=== PATIENT | female | born 1965 | race Caucasian/White ===

== ENCOUNTER → 2016-05-08 | Outpatient (CLI) | payer BC, OTHER ==
--- NOTE | 2016-05-08 13:55 | MA ---
Diagnostic Digital Mammogram With iCAD Analysis Clinical Indications: Evaluate palpable area in the upper outer right breast. A maternal aunt was jurgen gnosed with breast cancer in her 60s. Technique: Standard cephalocaudal projections are obtained. Digital breast tomosynthesis was performe d in the MLO projection with reconstruction at 1.0 mm slice thickness and composite MLO views reconst ructed. A skin marker is placed on the palpable region. A true lateral view of the right breast is al so performed. This examination is processed by the iCAD computer aided detection system. Comparison: June 2015, May 2013, May 2012, March 2011, February 2010. Breast density: Type B; Scattered fibroglandular densities. Findings: CAD was reviewed. No masses, suspicious calcifications or secondary signs of malignancy are seen. No discrete mammographic abnormality is seen corresponding to the palpable region. There has b een no significant change in the appearance of either breast. Impression: Palpable area in the right breast requires further evaluation, BI-RADS 0. Recommendation: Targeted right breast ultrasound which will be subsequently performed today. [facility] will send a result letter to the patient.
--- NOTE | 2016-05-08 14:39 | US ---
Right Breast Ultrasound History: Evaluate palpable lump. Technique: Longitudinal and transverse images were obtained utilizing a 15 MHz transducer. Color Dop pler evaluation is employed for assessment of vascularity. Examination is interpreted in conjunction with diagnostic mammography performed earlier today. Findings: Palpable asymmetry in the upper outer right breast is identified on physical examination. S onographic interrogation of the region demonstrates prominent fibroglandular elements. The tissue is somewhat heterogeneous with no discrete cystic or solid mass identified. Impression: Probably benign findings when considering mammographic and sonographic assessment, BI-RAD S 3. Recommendation: Continued clinical follow up with repeat sonographic assessment in six months as long as physical examination is stable. Findings and follow-up recommendations were reviewed with the patient in detail. [facility] will send a result letter to the patient.
== END ==
LOC: FIMAGING 13:13
PROVIDERS: ATTEND Nurse Practitioner Women's Health
DX: N63 Unspecified lump in breast (principal)
CPT/HCPCS: G0204; G0279

== ENCOUNTER → 2016-12-15 | Outpatient (CLI) | payer BC | LOC: FIMAGING 10:30 | PROVIDERS: ATTEND Obstetrics & Gynecology | DX: Z12.31 Encounter for screening mammogram for malignant neoplasm of breast (principal) | CPT/HCPCS: G0202 ==

== ENCOUNTER → 2017-01-20 | Outpatient (CLI) | payer BC | LOC: FIMAGING 09:45 | PROVIDERS: ATTEND Nurse Practitioner Women's Health | DX: R92.8 Other abnormal and inconclusive findings on diagnostic imaging of breast (principal) ==

== ENCOUNTER → 2018-03-24 | Outpatient (CLI) | payer OTHER | LOC: FIMAGING 09:50 | PROVIDERS: ATTEND Obstetrics & Gynecology | DX: Z12.31 Encounter for screening mammogram for malignant neoplasm of breast (principal) ==

== ENCOUNTER → 2018-05-31 | Outpatient (CLI) | payer OTHER | LOC: FIMAGING 13:24 | PROVIDERS: ATTEND Obstetrics & Gynecology | DX: N64.4 Mastodynia (principal) ==